=== PATIENT | male | born 1960 | race Caucasian/White ===

== ENCOUNTER → 2016-08-10 | Outpatient (CLI) | payer OTHER ==
[~2016-08-10] VITALS: Ht 182.9 cm; Wt 138.3 kg
[~2016-08-10] MED LIST: ASP81TEC PO; CATHETER FLUSH 10 ML SYR IV PRN; CIPR-225 PO; CIPR500T78 PO; CITA20TA4 PO; CITALOPRAM PO; CLOP75TA PO; CLOP75TA28 PO; FISH OIL 1,2001 EAC1 PO; GEMF600T3 PO; HYDR-1231 PO; LEVO125T6 PO; LEVOTHYROXINE PO; LOSA50TA6 PO; LSRT50T PO; METO25TA PO; METR500T21 PO; MULT1CAP27 PO; NAPR-243 PO; OMEG-9 PO; OMEP40CA36 PO; ONDA4TAB11 PO; OXYC-12 PO; PHEN37.555 PO; REGADENOSON 0.4 MG/5 ML SYR (LEXISCAN) IV ONE; SIMV40TA4 PO; SIMV80TA3; SIMV80TA3 PO; TRM50T PO; ZLP10T PO; ZOLP10TA5 PO
[2016-08-10 09:11] VITALS: BP 134/93
--- NOTE | 2016-08-10 12:40 | STRESS TEST ---
PROCEDURE PHYSICIAN: IRVING TAO RESTING AND POST REGADENOSON TECHNETIUM 99M TETROFOSMIN SPECT CT IMAGING DATE OF PROCEDURE: 08/10/2016 ORDERING PHYSICIAN: Mary Loomis APRN PRIMARY PHYSICIAN: Dr. Diane. OTHER PHYSICIAN: Dr. Tao CLINICAL DIAGNOSIS: Coronary artery disease, hyperlipidemia, hypertension. Baseline images were carried out after injection of 10.73 mCi of technetium 99m tetrofosmin. This was followed by 0.4 mg of regadenoson and 31.6 mCi technetium 99m tetrofosmin for stress imaging. The electrocardiogram showed sinus rhythm at baseline and did not change significantly with regadenoson infusion. Review of images at rest and following stress, does not indicate any distinct perfusion defects consistent with significant myocardial ischemia or infarction. Some degree of diaphragmatic attenuation is seen. Gated images show normal global left ventricular systolic function with normal regional wall motion, including the diaphragmatic wall of the left ventricle. Left ventricular ejection fraction is calculated to be 59%. Left ventricular end-diastolic volume is 96 mL. TID is absent (0.94). CONCLUSION: 1. No evidence of significant myocardial ischemia or infarction on this study. 2. Normal regional wall motion. 3. Normal global left ventricular systolic function with a calculated ejection fraction of 59%. Job ID: [id number] Dictated Date: 08/10/2016 11:30:00 Launch Steward Date: 08/10/2016 12:35:22 / re
== END ==
LOC: CARD 07:25
PROVIDERS: ATTEND Nurse Practitioner Family
DX: I25.10 Atherosclerotic heart disease of native coronary artery without angina pectoris (principal); I65.23 Occlusion and stenosis of bilateral carotid arteries; E78.4 Other hyperlipidemia; I10 Essential (primary) hypertension; I07.1 Rheumatic tricuspid insufficiency; I34.0 Nonrheumatic mitral (valve) insufficiency
CPT/HCPCS: 78452; 93017

== ENCOUNTER → 2016-08-11 | Outpatient (CLI) | payer OTHER ==
[~2016-08-11] MED LIST changes: -CATHETER FLUSH 10 ML SYR IV PRN; -REGADENOSON 0.4 MG/5 ML SYR (LEXISCAN) IV ONE
--- NOTE | 2016-08-23 09:44 | ECHOCARDIOGRAPHY REPORT ---
PROCEDURE PHYSICIAN: IRVING TAO DATE OF PROCEDURE: 08/11/2016 TWO DIMENSIONAL ECHOCARDIOGRAM REPORT PRIMARY PHYSICIAN: Dr. Diane OTHER PHYSICIAN: Dr. Tao REFERRING PHYSICIAN: ORDERING PHYSICIAN: Mary Loomis APRN INDICATION FOR THE PROCEDURE: 1. Coronary artery disease. 2. Hypertension. 3. Hyperlipidemia. MEASUREMENTS DERIVED VALUES LV DIAMETER (LAX) NORMALS NORMALS Diastolic (3.6-5.2) Eject. Fract. (60%+/-6%) Systolic (2.3-3.9) Diastolic Vol. % Shortening (0.22-0.42) Systolic Vol. Aortic Root 3.1 IVS THICKNESS Diastolic (0.6-1.1) LVPW THICKNESS Diastolic (0.6-1.1) LA DIAMETER Systolic 2.9 (2.1-3.7) DESCRIPTION: This is a technically difficult study. Global left ventricular systolic function appears well preserved. Left ventricular ejection fraction is approximately 60%. Aortic, mitral and tricuspid valve leaflets, to the extent visualized, seem to have good leaflet excursion. Due to and the technically difficult nature of this study, accurate chamber sizes measurements are not available. Doppler imaging indicates trivial, mitral and tricuspid regurgitation. There is no Doppler evidence of significant valvular stenosis. Inferior vena cava is not adequately visualized. Pulmonary artery systolic pressure is estimated to be approximately 35 mmHg. Good subcostal views are not available. Inferior vena cava is not seen. CONCLUSIONS: 1. Technically difficult study. 2. Well preserved global left ventricular systolic function with an ejection fraction of approximately 60%. 3. Trivial, mitral and tricuspid regurgitation. 4. No evidence of significant valvular stenosis. 5. Pulmonary artery systolic pressure is estimated to be approximately 35 mmHg. Job ID: [id number] Dictated Date: 08/22/2016 14:51:00 Obiee Architect Date: 08/23/2016 09:36:23 / prince
== END ==
LOC: CARD 11:20
PROVIDERS: ATTEND Nurse Practitioner Family
DX: I25.10 Atherosclerotic heart disease of native coronary artery without angina pectoris (principal); I65.23 Occlusion and stenosis of bilateral carotid arteries; E78.4 Other hyperlipidemia; I10 Essential (primary) hypertension; I07.1 Rheumatic tricuspid insufficiency; I34.0 Nonrheumatic mitral (valve) insufficiency
CPT/HCPCS: 93306

== ENCOUNTER 2020-02-21 20:58 | Inpatient (IN) | payer BC, OTHER ==
[~2020-02-21] VITALS: Ht 180.3 cm; Wt 140.3 kg
[~2020-02-21 20:58] MED LIST changes: +METR-145 PO; -METR500T21 PO
[2020-02-21] MEDS ORDERED: ASPIRIN 81 MG CHEW (CHILDREN'S ASA) PO ONE (21:30)
[2020-02-21] MEDS: NITROGLYCERIN 0.4 MG SL TABS BTL 25'S SL PRN ×3 (21:39→21:50)
--- NOTE | 2020-02-21 21:39 | ED Chest Pain ---
General Chief Complaint: Chest Pain Stated Complaint: SOA/ABD PAIN/CHEST PAIN Source: patient Exam Limitations: no limitations History of Present Illness Date Seen by Provider: Feb 21, 2020 Time Seen by Provider: 21:37 Initial Comments Epigastric and lower central chest pain for about 1 hour that began while at rest. Pain has been waxing and waning since then, it is for currently but was much more than this initially. He did have shortness of breath with it. He has a history of a stent to the RCA he states, this was [place] [address] Tao. He is supposed to be on blood pressure cholesterol medications and Plavix but he states that he's been without them for "a long time". Does not have a primary care provider and does not follow regularly with Dr. Tao. Timing/Duration: constant Severity/Quality: moderate Location: central Radiation: no radiation ASA po FLOOR SANDING MACHINE OPERATOR: No NTG SL FLOOR SANDING MACHINE OPERATOR: No Associated Symptoms: shortness of breath Allergies and Home Medications Allergies Coded Allergies: codeine (Unverified Allergy, Mild, 06/09/09) atorvastatin calcium (Verified Adverse Reaction, Unknown, muscle aches, 07/03/14) Home Medications Aspirin 81 Mg Tabec, 81 MG PO DAILY, (Reported) Ciprofloxacin HCl 500 Mg Tablet, 500 MG PO BID Prescribed by: CRYS RICKS on 02/01/15 0240 Clopidogrel Bisulfate 75 Mg Tablet, 75 MG PO DAILY, (Reported) Gemfibrozil 600 Mg Tablet, 600 MG PO BID, (Reported) Levothyroxine Sodium 125 Mcg Tablet, 125 MCG PO DAILY, (Reported) Losartan Potassium 50 Mg Tablet, 50 MG PO DAILY, (Reported) Metoprolol Succinate 25 Mg Tab.sr.24h, 12.5 MG PO DAILY, (Reported) TAKES 1/2 (25MG) TABLET Simvastatin 80 Mg Tablet, 40 MG PO HS, (Reported) LAST FILLED #30 4-5-15 TAKES 1/2 (80MG) TABLET Patient Home Medication List Home Medication List Reviewed: Yes Review of Systems Review of Systems Constitutional: see HPI EENTM: No Symptoms Reported Respiratory: See HPI Cardiovascular: See HPI, Chest Pain Gastrointestinal: See HPI Genitourinary: No Symptoms Reported Musculoskeletal: no symptoms reported Skin: no symptoms reported Psychiatric/Neurological: No Symptoms Reported Endocrine: No Symptoms Reported Hematologic/Lymphatic: No Symptoms Reported Past Lycwqnz-Xapvtm-Qhipfz Hx Patient Social History Alcohol Use: Denies Use Recreational Drug Use: No Smoking Status: Former Smoker 2nd Hand Smoke Exposure: No Recent Foreign Travel: No Contact w/Someone Who Travel: No Recent Hopitalizations: No Immunizations Up To Date Tetanus Booster (TDap): Less than 5yrs PED Vaccines UTD: No Seasonal Allergies Seasonal Allergies: No Past Medical History Surgeries: Yes (lap choley 2014; RT THUMB REMOVED LARGE CELL TUMOR, T&A, stent) Abdominal, Adenoidectomy, Coronary Stent, Gallbladder, Tonsillectomy Respiratory: No Cardiac: Yes (CAD, STENT & DC in 2010) Coronary Artery Disease, Heart Attack, High Cholesterol, Hypertension Neurological: No Reproductive Disorders: No Genitourinary: No Gastrointestinal: Yes (HX OF PANCREATITIS, diverticulitis x2 admits) Diverticulosis, Pancreatitis Musculoskeletal: No Endocrine: Yes Hypothyroidsim HEENT: No Loss of Vision: Denies Hearing Impairment: Denies Cancer: No Psychosocial: No Integumentary: No Blood Disorders: No Family Medical History Cataracts 19 MOTHER, Onset:Unknown Diabetes mellitus 19 MOTHER, Onset:Unknown FH: cancer 19 FATHER, Onset:Unknown Hypertension 19 MOTHER, Onset:Unknown Myocardial infarction 19 MOTHER, Onset:Unknown Thyroid disease 19 MOTHER, Onset:Unknown Physical Exam Vital Signs Vital Signs - First Documented Capillary Refill : Less Than 3 Seconds Height, Weight, BMI Height: 6'0.00" Weight: 305lbs. 0.0oz. 138.857453ma; 41.4 BMI Method:Stated General Appearance: No Apparent Distress, WD/WN, Obese HEENT: PERRL/EOMI, TMs Normal Respiratory: No Accessory Muscle Use, No Respiratory Distress Cardiovascular: Regular Rate, Rhythm, Normal Peripheral Pulses Gastrointestinal: Normal Bowel Sounds, Non Tender, Soft Neurologic/Psychiatric: Alert, Oriented x3 Skin: Normal Color, Warm/Dry Progress/Results/Core Measures Results/Orders Lab Results Laboratory Tests Test 02/21/20 21:32 Range/Units White Blood Count 10.6 4.3-11.0 10^3/uL Red Blood Count 5.12 4.30-5.52 10^6/uL Hemoglobin 14.9 13.3-17.7 g/dL Hematocrit 44 40-54 % Mean Corpuscular Volume 87 80-99 fL Mean Corpuscular Hemoglobin 29 25-34 pg Mean Corpuscular Hemoglobin Concent 34 32-36 g/dL Red Cell Distribution Width 13.4 10.0-14.5 % Platelet Count 265 130-400 10^3/uL Mean Platelet Volume 10.2 9.0-12.2 fL Immature Granulocyte % (Auto) 1 % Neutrophils (%) (Auto) 66 42-75 % Lymphocytes (%) (Auto) 23 12-44 % Monocytes (%) (Auto) 8 0-12 % Eosinophils (%) (Auto) 3 0-10 % Basophils (%) (Auto) 1 0-10 % Neutrophils # (Auto) 7.0 1.8-7.8 10^3/uL Lymphocytes # (Auto) 2.4 1.0-4.0 10^3/uL Monocytes # (Auto) 0.8 0.0-1.0 10^3/uL Eosinophils # (Auto) 0.3 0.0-0.3 10^3/uL Basophils # (Auto) 0.1 0.0-0.1 10^3/uL Immature Granulocyte # (Auto) 0.1 0.0-0.1 10^3/uL Prothrombin Time 13.3 12.2-14.7 SEC INR Comment 1.0 0.8-1.4 Activated Partial Thromboplast Time 34 24-35 SEC Sodium Level 137 135-145 MMOL/L Potassium Level 3.8 3.6-5.0 MMOL/L Chloride Level 102 98-107 MMOL/L Carbon Dioxide Level 21 21-32 MMOL/L Anion Gap 14 5-14 MMOL/L Blood Urea Nitrogen 10 7-18 MG/DL Creatinine 0.98 0.60-1.30 MG/DL Estimat Glomerular Filtration Rate > 60 BUN/Creatinine Ratio 10 Glucose Level 141 H 70-105 MG/DL Calcium Level 8.8 8.5-10.1 MG/DL Corrected Calcium 8.6 8.5-10.1 MG/DL Magnesium Level 1.7 1.6-2.4 MG/DL Total Bilirubin 0.5 0.1-1.0 MG/DL Aspartate Amino Transf (AST/SGOT) 41 H 5-34 U/L Alanine Aminotransferase (ALT/SGPT) 48 0-55 U/L Alkaline Phosphatase 72 40-136 U/L Myoglobin 309.6 H 10.0-92.0 NG/ML Troponin I < 0.028 <0.028 NG/ML B-Type Natriuretic Peptide 12.2 <100.0 PG/ML Total Protein 7.6 6.4-8.2 GM/DL Albumin 4.2 3.2-4.5 GM/DL Lipase 18 8-78 U/L Coronavirus 2019 (TOÑA) Negative Negative My Orders Orders - SINGH BECKMAN APRN Cbc With Automated Diff (02/21/20:) Magnesium (02/21/20:) Chest 1 View, Ap/Pa Only (02/21/20) Ekg Tracing (02/21/20) Comprehensive Metabolic Panel (02/21/20) Myoglobin Serum (02/21/20) Protime With Inr (02/21/20) Partial Thromboplastin Time (02/21/20) O2 (02/21/20) Monitor-Rhythm Ecg Trace Only (02/21/20) Lipid Panel (02/22/20 06:00) Ed Iv/Invasive Line Start (02/21/20:) Lipase (02/21/20:) BNP (02/21/20:) Nitroglycerin 0.4 Mg Btl 25's (Nitrostat (02/21/20:30) Aspirin Chewable Tablet (Baby Aspirin Ch (02/21/20 21:30) Covid 19 Inhouse Test (02/21/20:27) Fentanyl Injection (Sublimaze Injection (02/21/20 22:00) Antacid Suspension (Mylanta Suspension (02/21/20 22:00) Lidocaine 2% Viscous 15 Ml (Xylocaine Vi (02/21/20 22:00) Troponin I (02/21/20 21:32) Ekg Tracing (02/21/20 22:08) Coronavirus Sars-Cov-2 So 2019 (02/21/20 22:18) Medications Given in ED Current Medications Medications Dose Ordered Sig/Patrick Route Start Time Stop Time Status Last Admin Dose Admin Al Hydrox/Mg Hydrox/Simethicone 30 ml ONCE ONCE PO 02/21/20 22:00 02/21/20 22:01 DC 02/21/20 21:59 30 ML Aspirin 324 mg ONCE ONCE PO 02/21/20 21:30 02/21/20 21:31 DC 02/21/20 21:38 324 MG Fentanyl Citrate 50 mcg ONCE ONCE IVP 02/21/20 22:00 02/21/20 22:01 DC 02/21/20 21:59 50 MCG Lidocaine HCl 15 ml ONCE ONCE PO 02/21/20 22:00 02/21/20 22:01 DC 02/21/20 21:59 15 ML Nitroglycerin 0.4 mg UD PRN SL 02/21/20 21:30 02/21/20 21:50 DC 02/21/20 21:50 0.4 MG Vital Signs/I&O 02/21/20 02/21/20 21:17 21:17 Temp 35.9 Pulse 64 Resp 20 B/P (MAP) 140/89 (106) Pulse Ox 95 O2 Delivery Room Air Room Air Departure Communication (Admissions) 2151-chest pain was taken from 4 out of 10 down to 2 out of 10 after the first sublingual nitroglycerin. The second sublingual nitroglycerin did not help. GI cocktail and 50 of fentanyl ordered. 2229-he is not having any chest pain at this time. EKG shows minimal questionable ST elevation in the inferior leads. Spoke with Dr. Tao, given absence of chest pain not going urgently to catheter lab but does warrant admission in the hospital with serial cardiac enzymes. Impression Primary Impression: Chest pain Qualified Codes: R07.9 - Chest pain, unspecified Disposition: ADMITTED INPATIENT Condition: Stable Admissions Decision to Admit Reason: Admit from ER (General) Departure-Patient Inst. Referrals: LÁZARO PERLA MD (PCP/Family) Primary Care Physician SIN[facility] BECKMAN DESCRIPTIVE CATALOG LIBRARIAN Feb 21, 2020 21:39
[2020-02-21 21:44] LABS: BASOPHILS # (AUTO) 0.1 10^3/uL (0.0-0.1); BASOPHILS % (AUTO) 1 % (0-10); EOSINOPHILS # (AUTO) 0.3 10^3/uL (0.0-0.3); EOSINOPHILS % (AUTO) 3 % (0-10); HEMATOCRIT 44 % (40-54); HEMOGLOBIN 14.9 g/dL (13.3-17.7); LYMPHOCYTES # (AUTO) 2.4 10^3/uL (1.0-4.0); LYMPHOCYTES % (AUTO) 23 % (12-44); MEAN CORPUSCULAR HEMOGLOBIN 29 pg (25-34); MEAN CORPUSCULAR HGB CONC 34 g/dL (32-36); MEAN CORPUSCULAR VOLUME 87 fL (80-99); MEAN PLATELET VOLUME 10.2 fL (9.0-12.2); MONOCYTES # (AUTO) 0.8 10^3/uL (0.0-1.0); MONOCYTES % (AUTO) 8 % (0-12); NEUTROPHILS % (AUTO) 66 % (42-75); PLATELET COUNT 265 10^3/uL (130-400); WHITE BLOOD COUNT 10.6 10^3/uL (4.3-11.0)
[2020-02-21 21:59] LABS: ALBUMIN 4.2 GM/DL (3.2-4.5); CHLORIDE 102 MMOL/L (98-107); POTASSIUM 3.8 MMOL/L (3.6-5.0); SODIUM 137 MMOL/L (135-145)
[2020-02-21] MEDS ORDERED: fentaNYL INJECTION 100 MCG/2 ML AMP IVP ONE (22:00)
[2020-02-21] MEDS ORDERED: LIDOCAINE 2% VISCOUS 15 ML UDC PO ONE (22:00)
[2020-02-21] MEDS ORDERED: ANTACID SUSP 30 ML UDC (MYLANTA) PO ONE (22:00)
[2020-02-21 22:01] LABS: CALCIUM 8.8 MG/DL (8.5-10.1)
[2020-02-21 22:02] LABS: GLUCOSE 141 MG/DL (70-105); TOTAL PROTEIN 7.6 GM/DL (6.4-8.2)
[2020-02-21 22:03] LABS: CARBON DIOXIDE 21 MMOL/L (21-32)
[2020-02-21 22:04] LABS: BILIRUBIN,TOTAL 0.5 MG/DL (0.1-1.0)
[2020-02-21 22:05] LABS: ALKALINE PHOSPHATASE 72 U/L (40-136); CREATININE SERUM 0.98 MG/DL (0.60-1.30); GFR ESTIMATED > 60
[2020-02-21 22:07] LABS: BUN/CREATININE RATIO 10
[2020-02-21 22:08] LABS: ALANINE AMINOTRANSFERASE 48 U/L (0-55); MAGNESIUM 1.7 MG/DL (1.6-2.4); PROTHROMBIN TIME PATIENT 13.3 SEC (12.2-14.7)
[2020-02-21 22:09] LABS: LIPASE 18 U/L (8-78)
[2020-02-21] MEDS ORDERED: ENOXAPARIN 60 MG/0.6 ML (LOVENOX) SYR SC ONE (22:45)
[2020-02-21] MEDS ORDERED: CLOPIDOGREL 300 MG (PLAVIX) TABLET PO ONE (22:45)
[2020-02-21 22:56] VITALS: BP 119/68
[2020-02-21] MEDS: LACTATED RINGERS 1,000 ML IV SCH (23:42)
[2020-02-21] MEDS ORDERED: morphine INJ 4 MG/ML 1 ML (VIAL/SYRINGE) IV PRN (23:45)
[2020-02-21] MEDS ORDERED: ONDANSETRON 4 MG/2 ML (SDV) Z0FRAN IVP PRN (23:45)
[2020-02-22] MEDS: NITROGLYCERIN 0.4 MG SL TABS BTL 25'S SL PRN ×2 (02:22→02:32)
--- NOTE | 2020-02-22 03:28 | NUR ---
TIMELINE NOTE BELOW: 0220- PATIENT C/O CHEST PRESSURE 3/10 AND EXTREME NAUSEA. PATIENT ALSO DIAPHORETIC. CURRENT VITALS: HR 61 BP 128/97 SA02 97% ON ROOM AIR, AND RESPIRATIONS 9. 0222- THIS RN GAVE 1 SUBLINGUAL NITROGLYCERIN TAB AND 4MG ZOFRAN IV (SEE EMAR). THIS PROVIDED NO RELIEF TO PATIENT. THIS RN ATTEMPTING TO OBTAIN STAT EKG, PATIENT EXTREMELY DIAPHORETIC AND STICKERS NOT STICKING AT THIS TIME. 0230- CURRENT VITALS HR 57 BP 112/73 SA02 94% ON ROOM AIR, AND RESPIRATIONS 11. 0232- 2ND NITROGLYCERIN SUBLINGUAL TAB GIVEN AT THIS TIME (SEE EMAR). NITROGLYCERIN PROVIDED NO RELIEF TO PATIENT. 0241- STAT EKG OBTAINED, READ "SINUS RHYTHM". 0248- CURRENT VITALS: HR 49 BP 81/55 SA02 93% ROOM AIR, AND RESPIRATIONS OF 8. PT STILL C/O OF CHEST PRESSURE 3/10 WITH EXTREME NAUSEA AND DIAPHORESIS DESPITE ABOVE INTERVENTIONS. THIS RN PAGED DR. NUNEZ AT THIS TIME AND NOTIFIED OF CURRENT VITALS AND PATIENT COMPLAINTS. DR. NUNEZ ORDERED STAT HEART CATH. FUR SORTER, WILSON, NOTIFIED AT THIS TIME. READING COACH TEAM NOTIFIED AT THIS TIME. CONSENT OBTAINED. 0300- PATIENT RESTING COMFORTABLY IN BED, CURRENT VITALS: HR 56 BP 123/79 SA02 95% ROOM AIR, AND RESPIRATIONS 13. 0341- READING COACH TEAM AT BEDSIDE TO ESCORT PATIENT TO HEART CATH.
[2020-02-22] MEDS ORDERED: MIDAZOLAM 5 MG/5 ML (VERSED) VIAL ONE (03:30)
[2020-02-22] MEDS ORDERED: HEParin 1000 UNIT/ML (10ML VIAL) FOR BOLUS ONE (03:30)
[2020-02-22] MEDS ORDERED: NS IV 1000 ML 0 ML ONE (03:30)
[2020-02-22] MEDS ORDERED: NITRO DRIP 25000 MCG/D5W 0 ML IV ONE (03:30)
[2020-02-22] MEDS ORDERED: fentaNYL INJECTION 100 MCG/2 ML AMP ONE ×2 (03:30→07:23)
[2020-02-22] MEDS ORDERED: LIDOCAINE 1% INJ 20 ML 20 ML VIAL ONE ×2 (03:30→04:01)
[2020-02-22] MEDS ORDERED: HEParin (CATH LAB) 2,000 ML IV ONE (03:31)
--- NOTE | 2020-02-22 03:33 | Consultation-Cardiology ---
HPI-Cardiology Cardiology Consultation: Date of Consultation 02/22/20 Time Seen by a Provider: 05:10 Date of Admission Attending Physician Phuong Hammonds MD Admitting Physician Consulting Physician IRVING NUNEZ MD, MA, FACP, FACC, FSCAI, CCDS HPI: Chief Complaint: CC: Chest discomfort HPI 59 yo man with known CAD who has been noncompliant with therapy and f/u presented with 1-2 hours chest discomfort, mild to mod, mid and parasternal, w/o radiation, w/o associated symptoms, relieved with s/l NTG in ER, not previously experienced. His chest pain had subsided. ECG was not significantly different from the past. Was admitted to the hospital. Had recurrent chest discomfort, now associated with diaphoresis and nausea and some shortness of breath, not relieved with s/l NTG. Urgent cath occlusion of distal RCA to which successful intervention was carried out Review of Systems-Cardiology Review of Systems Constitutional: malaise; No weight loss, No weight gain Eyes: No vision change Ears/Nose/Throat: No ear discharge, No nasal drainage, No recent hearing loss Respiratory: As described under HPI Cardiovascular: As described under HPI Gastrointestinal: As described under HPI Genitourinary: No dysuria, No hematuria Musculoskeletal: back pain (chronic) Skin: No rash, No ulcerations Psychiatric/Neurological: No seizure, No focal weakness, No syncope FLY-Yegthp-Ybaxsw Hx Patient Social History Alcohol Use: Denies Use Recreational Drug Use: No Smoking Status: Former Smoker Former smoker/When Quit: Dec 22, 2009 2nd Hand Smoke Exposure: No Recent Foreign Travel: No Recent Infectious Disease Expo: No Immunizations Up To Date Tetanus Booster (TDap): Less than 5yrs Date of Influenza Vaccine: Feb 05, 2020 Past Medical History PMH As described under Assessment. Family Medical History Family History: Cataracts 19 MOTHER, Onset:Unknown Diabetes mellitus 19 MOTHER, Onset:Unknown FH: cancer 19 FATHER, Onset:Unknown Hypertension 19 MOTHER, Onset:Unknown Myocardial infarction 19 MOTHER, Onset:Unknown Thyroid disease 19 MOTHER, Onset:Unknown Allergies and Home Medications Allergies Coded Allergies: Penicillins (Verified Allergy, Severe, 02/21/20) patient states "my throat started feeling funny and the doctor said stop taking it". codeine (Unverified Allergy, Severe, 02/21/20) Pt stated he hasn't had it since he was little but his mom said he "almost twice because of it". atorvastatin calcium (Verified Adverse Reaction, Unknown, muscle aches, 07/03/14) lisinopril (Verified Adverse Reaction, Unknown, 02/21/20) Patient states reaction is coughing. Home Medications Aspirin 81 Mg Tabec, 81 MG PO DAILY, (Reported) Ciprofloxacin HCl 500 Mg Tablet, 500 MG PO BID Prescribed by: CRYS RICKS on 02/01/15 0240 Clopidogrel Bisulfate 75 Mg Tablet, 75 MG PO DAILY, (Reported) Gemfibrozil 600 Mg Tablet, 600 MG PO BID, (Reported) Levothyroxine Sodium 125 Mcg Tablet, 125 MCG PO DAILY, (Reported) Losartan Potassium 50 Mg Tablet, 50 MG PO DAILY, (Reported) Metoprolol Succinate 25 Mg Tab.sr.24h, 12.5 MG PO DAILY, (Reported) TAKES 1/2 (25MG) TABLET Simvastatin 80 Mg Tablet, 40 MG PO HS, (Reported) LAST FILLED #30 4-5-15 TAKES 1/2 (80MG) TABLET Patient Home Medication List Home Medication List Reviewed: Yes Physical Exam-Cardiology Physical Exam Vital Signs/I&O 02/21/20 02/21/20 02/21/20 02/21/20 21:17 21:17 22:56 23:15 Temp 35.9 36.8 Pulse 64 73 80 Resp 20 16 B/P (MAP) 140/89 (106) 119/68 173/97 Pulse Ox 95 95 97 O2 Delivery Room Air Room Air Room Air Room Air 02/21/20 02/21/20 02/21/20 02/21/20 23:20 23:22 23:27 23:30 Temp 36.4 Pulse 75 70 80 B/P (MAP) 173/97 152/98 Pulse Ox 97 97 96 O2 Delivery Room Air Room Air Room Air 02/21/20 02/22/20 02/22/20 02/22/20 23:45 00:00 00:00 00:30 Pulse 97 87 78 B/P (MAP) 147/94 140/92 126/87 Pulse Ox 96 97 96 97 O2 Delivery Room Air Room Air Room Air Room Air 02/22/20 02/22/20 02/22/20 02/22/20 01:00 01:00 02:00 03:00 Pulse 77 67 62 B/P (MAP) 120/79 141/88 Pulse Ox 96 95 95 O2 Delivery Room Air Room Air Room Air 02/22/20 03:00 Pulse 56 B/P (MAP) 123/79 Pulse Ox 95 O2 Delivery Room Air Capillary Refill : Less Than 3 Seconds Constitutional: AAO x 3, well-developed, well-nourished HEENT: EOMI, hearing is well preserved; No xanthelasmas are seen Neck: carotid pulses are 2 + bilaterally, with good upstrokes Respiratory: No accessory muscle use; other (good bilat air entry) Cardiovascular: regular rate-rhythm, S1 and S2, systolic murmur (soft VOLODYMYR at card base) Gastrointestinal: No tender; soft; No guarding, No rebound; audible bowel sounds Extremities: No clubbing, No cyanosis, No significant edema Neurologic/Psychiatric: oriented x 3, other (moves all limbs equally) Skin: No rash on exposed areas, No ulcerations on exposed areas Data Review Labs Laboratory Tests 02/21/20 21:32: White Blood Count 10.6, Red Blood Count 5.12, Hemoglobin 14.9, Hematocrit 44, Mean Corpuscular Volume 87, Mean Corpuscular Hemoglobin 29, Mean Corpuscular Hemoglobin Concent 34, Red Cell Distribution Width 13.4, Platelet Count 265, Mean Platelet Volume 10.2, Immature Granulocyte % (Auto) 1, Neutrophils (%) (Auto) 66, Lymphocytes (%) (Auto) 23, Monocytes (%) (Auto) 8, Eosinophils (%) (Auto) 3, Basophils (%) (Auto) 1, Neutrophils # (Auto) 7.0, Lymphocytes # (Auto) 2.4, Monocytes # (Auto) 0.8, Eosinophils # (Auto) 0.3, Basophils # (Auto) 0.1, Immature Granulocyte # (Auto) 0.1, Prothrombin Time 13.3, INR Comment 1.0, Activated Partial Thromboplast Time 34, Sodium Level 137, Potassium Level 3.8, Chloride Level 102, Carbon Dioxide Level 21, Anion Gap 14, Blood Urea Nitrogen 10, Creatinine 0.98, Estimat Glomerular Filtration Rate > 60, BUN/Creatinine Ratio 10, Glucose Level 141H, Calcium Level 8.8, Corrected Calcium 8.6, Magnesium Level 1.7, Total Bilirubin 0.5, Aspartate Amino Transf (AST/SGOT) 41H, Alanine Aminotransferase (ALT/SGPT) 48, Alkaline Phosphatase 72, Myoglobin 309.6H, Troponin I < 0.028, B-Type Natriuretic Peptide 12.2, Total Protein 7.6, Albumin 4.2, Lipase 18, Coronavirus 2019 (TOÑA) Negative Laboratory Tests 02/21/20 21:32 A/P-Cardiology Assessment/Admission Diagnosis Acute coronary syndrome treated with intervention to distal RCA on 02/22/20 (see below) Coronary artery disease with a history of drug-eluting stenting of the proximal and mid right coronary artery with Promus 2.75 x 28-mm stent on 11/03/2009, after the patient had presented with acute non-ST elevation myocardial infarction. Card cath on 02/22/20: LMCA ok, LADD1 60% mid, RI 60% prox, LCXOM1 60% prox, patent prox RCA stent, 50% mid RCA, occlusion of distal RCA past a small PDA to which successful intervention was carried out with Santi 2x18 stent, LVEDP 24 mmHg, hypokinesis to akinesis of posterobasal segment of LV, LVEF 40- 45% Echocardiogram of August 2016 showed LVEF 60%. Trivial MR and TR. No evidence of significant valvular stenosis. PASP estimated to be approx 35mmHg Maturity onset diabetes mellitus, borderline Hyperlipidemia Gastroesophageal reflux History of chronic anxiety and depression, currently controlled Obesity with a body mass index of approx 40.6 Quit smoking in 2009 Discussion and Recomendations * I have discussed his coronary findings and interventions with him * DAPT initiated * He reports intolerance to statins and does not wish to take any statin * BB and JESSICA-inhib as tolerated by bp * Advised compliance with meds * Risk factor mod discussed Clinical Quality Measures AMI/AHF: ASA po Prior to arrival: No DVT/VTE Risk/Contraindication: Risk Factor Score Per Nursin RFS Level Per Nursing on Admit: 3=High IRVING NUNEZ MD FACP FAC CCDS Feb 22, 2020 03:33
[2020-02-22] MEDS ORDERED: EPTIFIBATIDE BOLUS 10 ML IV ONE (04:11)
[2020-02-22] MEDS ORDERED: EPTIFIBATIDE BOLUS 20 ML IV ONE (04:11)
[2020-02-22] MEDS ORDERED: EPTIFIBATIDE DRIP 100 ML IV ONE (04:11)
[2020-02-22] MEDS: LACTATED RINGERS 1,000 ML IV SCH (04:27)
[2020-02-22] MEDS ORDERED: LACTATED RINGERS 1,000 ML IV ONE (04:27)
[2020-02-22] MEDS ORDERED: CLOPIDOGREL 300 MG (PLAVIX) TABLET PO ONE (04:45)
[2020-02-22] MEDS ORDERED: ASPIRIN 81 MG CHEW (CHILDREN'S ASA) ONE (04:45)
--- NOTE | 2020-02-22 05:21 | Cardiac Procedure Note-CS/ASA ---
Pre-Procedure Note Pre-Op Procedure Note H&P Reviewed The H&P was reviewed, patient examined and no changes noted. Date H&P Reviewed: Feb 22, 2020 Time H&P Reviewed: 03:33 Conscious Sedation Pre-Proced Time 03:33 ASA Score 3 For ASA 3 and 4: Consider anesthesia and medical clearance. Also, for patients with a history of failed moderate sedation consider anesthesia. Airway Lungs Heart ASA score ASA 1: a normal healthy patient ASA 2: a patient with a mild systemic disease (mid diabetes, controlled hypertension, obesity ASA 3: a patient with a severe systemic disease that limits activity (angina, COPD, prior Myocardial infarction) ASA 4: a patient with an incapacitating disease that is a constant threat to life (CHF, renal failure) ASA 5: a moribund patient not expected to survive 24 hrs. (ruptured aneurysm) ASA 6: a declared brain- patient whose organs are being harvested. For emergent operations, add the letter E after the classification Mallampati Classification Grade 3 Sedation Plan Analgesia, Amnesia, Plan communicated to team members, Discussed options with patient/fam, Discussed risks with patient/fam The patient is an appropriate candidate to undergo the planned procedure, sedation, and anesthesia. The patient immediately re-assessed prior to indication. IRVING NUNEZ MD FACP FAC CCDS Feb 22, 2020 05:21
[2020-02-22] MEDS ORDERED: NS IV 1000 ML 1,000 ML IV SCH (05:24)
[2020-02-22] MEDS ORDERED: PATIENT MAY USE OWN MEDS, ALL PO SCH (05:30)
[2020-02-22 06:16] LABS: BASOPHILS % (AUTO) 0 % (0-10); EOSINOPHILS # (AUTO) 0.1 10^3/uL (0.0-0.3); EOSINOPHILS % (AUTO) 1 % (0-10); HEMATOCRIT 41 % (40-54); HEMOGLOBIN 13.9 g/dL (13.3-17.7); LYMPHOCYTES # (AUTO) 1.9 10^3/uL (1.0-4.0); LYMPHOCYTES % (AUTO) 16 % (12-44); MEAN CORPUSCULAR HEMOGLOBIN 30 pg (25-34); MEAN CORPUSCULAR HGB CONC 34 g/dL (32-36); MEAN CORPUSCULAR VOLUME 88 fL (80-99); MEAN PLATELET VOLUME 10.1 fL (9.0-12.2); MONOCYTES # (AUTO) 0.8 10^3/uL (0.0-1.0); MONOCYTES % (AUTO) 7 % (0-12); NEUTROPHILS # (AUTO) 8.6 10^3/uL (1.8-7.8); NEUTROPHILS % (AUTO) 75 % (42-75); PLATELET COUNT 236 10^3/uL (130-400); WHITE BLOOD COUNT 11.5 10^3/uL (4.3-11.0)
--- NOTE | 2020-02-22 06:26 | CARDIAC CATHETERIZATION ---
DATE OF SERVICE: 02/22/2020 CARDIAC CATHETERIZATION REPORT The patient is a 59-year-old man who presented to the emergency room with chest discomfort. Chest discomfort was relieved in the emergency room with sublingual nitroglycerin. He later had recurrent chest discomfort on the floor and urgent cardiac catheterization was recommended, and informed consent obtained. He has a prior history of coronary stenting (right coronary artery in 2009). He has been noncompliant with medications. DESCRIPTION OF PROCEDURE: He was brought to the cardiac catheterization laboratory. Right groin was prepared and draped in the usual sterile fashion. Lidocaine 1% was used for local anesthesia. Modified Seldinger technique was used to advance a 6-Palestinian sheath in right femoral artery. A 6-Palestinian JL4 catheter was used for left coronary angiography. A 6-Palestinian JR4 catheter was used for right coronary angiography. A 6-Palestinian pigtail catheter was used for left heart catheterization and left ventricular angiography after completion of the right coronary interventional procedure that is described below. Angiography of the right femoral artery was carried out through the sheath. The site of sheath insertion did not appear appropriate for device closure. The sheath was sutured in place and the patient was transferred to the floor for manual sheath removal. PERCUTANEOUS INTERVENTION OF THE RIGHT CORONARY: We used a 6-Palestinian JR4 guide catheter with side holes. We advanced a ChoICE floppy wire. The very distal part of the right coronary artery was occluded past a small posterior descending branch. We were able to cross the lesion and the tip of the wire was placed in the distal posterolateral system. We carried out balloon angioplasty with 1.5 x 20 mm balloon. This restored antegrade flow. Balloon was removed and we then stented the lesion with Jefferson 2.0 x 18 mm stent. This was deployed at 12 atmospheres. The balloon was then collapsed and pulled back to the proximal two-thirds of the stent and the stent was deployed at 18 atmospheres. This was done because the proximal part of the standard segment is of a slightly bigger size than the distal part of the standard segment. Subsequent angiography revealed no significant residual stenosis and flow throughout the vessel is normal. He tolerated this procedure well. HEMODYNAMICS: Left ventricular end-diastolic pressure following coronary angiography was 24 mmHg. There is no significant pressure gradient on pullback across the aortic valve. Ascending aortic pressure was 98/58 with a mean of 73 mmHg. CORONARY ANGIOGRAPHY: Left main coronary artery is free of significant disease. Left anterior descending artery has diffuse mild to moderate disease. The first diagonal branch of the left anterior descending has 60% mid vessel stenosis. A ramus intermedius artery has 60% proximal stenosis. The first obtuse marginal branch, left circumflex artery has a 60% stenosis. Right coronary artery had a patent stented segment in its proximal and mid portion. This is a Promus 2.75 x 28 mm stent that was placed on 11/03/2009. The mid right coronary artery has 50% stenosis. This was not intervened on. The distal right coronary artery was occluded following the origin of a small posterior descending branch of the right coronary. This segment was intervened on, and it come up following deployment of Santi 2.0 x 18 mm stent, there is no significant residual stenosis and normal antegrade flow has been restored. LEFT VENTRICULAR ANGIOGRAPHY: Left ventricular angiography was carried out in the right anterior oblique projection. There is posterobasal hypokinesis to akinesis. Left ventricular ejection fraction is 40% to 45%. HEMODYNAMICS: Left ventricular end-diastolic pressure following coronary angiography was 24 mmHg. There is no significant pressure gradient on pullback across the aortic valve. Ascending aortic pressure was 98/58 with a mean of 73 mmHg. CONCLUSIONS: 1. Moderate left coronary artery disease that includes 60% mid vessel stenosis of the first diagonal, 60% proximal stenosis of the ramus intermedius, and a 60% stenosis of the proximal first obtuse marginal. The right coronary artery has a patent stent in its proximal portion that is known to be Promus 2.75 x 28 mm stent that was placed in 2009. The distal right coronary artery was occluded past the origin of a small posterior descending branch. To this successful stenting was carried out with Santi 2.0 x 8 mm stent. 2. Posterior basal hypokinesis. 3. Ohvc-ko-ymykjlwn impairment of global left ventricular systolic function with ejection fraction of 40% to 45%. 4. Elevated left ventricular end-diastolic pressure. DISCUSSION AND RECOMMENDATIONS: We have advised compliance with medications. He had quit taking his antiplatelet medications. He is now on dual antiplatelet therapy with aspirin and clopidogrel. He reports intolerance to statins and does not wish to take it. Beta blockers will be given as tolerated by heart rate and blood pressure. He reports intolerance to JESSICA inhibitors. We are initiating therapy with low dose angiotensin receptor blockers and this will be continued as tolerated. Risk factor modification has been reviewed with him. Job ID: [id number] DocumentID: [id number] Dictated Date: 02/22/2020 05:38:35 Procurement Coordinator Date: 02/22/2020 06:25:24 Dictated By: IRVING NUNEZ MD, MA, FACP, FACC,
[2020-02-22] MEDS ORDERED: ATROPINE INJ 0.4 MG/ML SDV ONE (06:36)
[2020-02-22 06:37] LABS: BUN/CREATININE RATIO 13; CALCIUM 8.5 MG/DL (8.5-10.1); CARBON DIOXIDE 21 MMOL/L (21-32); CHLORIDE 102 MMOL/L (98-107); CHOLESTEROL 203 MG/DL (< 200); CREATININE SERUM 0.88 MG/DL (0.60-1.30); GFR ESTIMATED > 60; GLUCOSE 161 MG/DL (70-105); HDL CHOLESTEROL 25 MG/DL (40-60); MAGNESIUM 1.9 MG/DL (1.6-2.4); POTASSIUM 4.1 MMOL/L (3.6-5.0); SODIUM 133 MMOL/L (135-145); TRIGLYCERIDES 352 MG/DL (<150); VLDL CHOLESTEROL 70 MG/DL (5-40)
[2020-02-22] MEDS ORDERED: fentaNYL INJECTION 100 MCG/2 ML AMP IVP ONE (07:30)
--- NOTE | 2020-02-22 07:39 | Diagnostic Imaging Report ---
INDICATION: Chest pain. Comparison made with prior examination 08/10/2014 FINDINGS: There is cardiomegaly. Some left basilar atelectasis and/or pneumonitis. There is no pneumothorax. Mediastinum is unremarkable. IMPRESSION: Left basilar atelectasis and/or pneumonitis. Cardiomegaly. Dictated by: Dictated on workstation # [id number]
[2020-02-22] MEDS ORDERED: CLOPIDOGREL 75 MG (PLAVIX) TABLET PO SCH (09:00)
[2020-02-22] MEDS ORDERED: LOSARTAN 25 MG (COZAAR) TAB PO SCH (09:00)
[2020-02-22] MEDS ORDERED: meTOproloL SUCCINATE 50 MG (TOPROL XL) TAB PO SCH (09:00)
[2020-02-22] MEDS ORDERED: ASPIRIN 81 MG CHEW (CHILDREN'S ASA) PO SCH (09:00)
[2020-02-22] MEDS ORDERED: ENOXAPARIN 300 MG/3 ML (LOVENOX) MULTI-DOSE VIAL SQ SCH (09:00)
--- NOTE | 2020-02-22 11:19 | NUR ---
lab called at this time, reported at critical lab value for troponin of 3.414. this rn verbalized understanding and reported to markus colvin, RN
--- NOTE | 2020-02-22 13:52 | History & Physical-Hospitalist ---
History of Present Illness HPI/Chief Complaint Harrison Booth is a 59-year-old male with past medical history of hypertension, hyperlipidemia, type II diabetes mellitus, coronary artery disease, morbid obesity, former smoker, who presented with chest pain. He reports that the pain started in the center of his chest and did not radiate. He says it was associated with trouble breathing. Overnight, he says that the pain worsened and was associated with nausea and diaphoresis. He was taken to the catheter lab and he had a coronary artery stent placed. Upon my examination, he denies any ongoing chest pain. He has no complaints or concerns at this time. Source: patient Exam Limitations: no limitations Date Seen 02/22/20 Time Seen by a Provider: 10:15 Attending Physician Ruth Lechuga MD PCP Deleted Referring Physician Date of Admission Feb 21, 2020 at 22:52 Home Medications & Allergies Home Medications Reviewed patient Home Medication Reconciliation performed by pharmacy medication reconciliations precision agriculture technician and/or nursing. Patients Allergies have been reviewed. Allergies Allergies Coded Allergies Penicillins (Verified Allergy, Severe, 02/21/20) patient states "my throat started feeling funny and the doctor said stop taking it". codeine (Unverified Allergy, Severe, 02/21/20) Pt stated he hasn't had it since he was little but his mom said he "almost twice because of it". atorvastatin calcium (Verified Adverse Reaction, Unknown, muscle aches, 07/03/14) lisinopril (Verified Adverse Reaction, Unknown, 02/21/20) Patient states reaction is coughing. Past Iucpygq-Nsbegy-Fqhiam Hx Past Med/Social Hx: Reviewed Nursing Past Med/Soc Hx Patient Social History Alcohol Use: Denies Use Recreational Drug Use: No Smoking Status: Former Smoker 2nd Hand Smoke Exposure: No Recent Foreign Travel: No Contact w/other who traveled: No Recent Hopitalizations: No Recent Infectious Disease Expo: No Immunizations Up To Date Tetanus Booster (TDap): Less than 5yrs Pediatric: No Date of Influenza Vaccine: Feb 05, 2020 Seasonal Allergies Seasonal Allergies: No Past Medical History Surgeries: Abdominal, Adenoidectomy, Coronary Stent, Gallbladder, Tonsillectomy Cardiac: Coronary Artery Disease, Heart Attack, High Cholesterol, Hypertension Reproductive: No Gastrointestinal: Diverticulosis, Pancreatitis Endocrine: Hypothyroidsim Loss of Vision: Denies Hearing Impairment: Denies History of Blood Disorders: No Family History Cataracts 19 MOTHER, Onset:Unknown Diabetes mellitus 19 MOTHER, Onset:Unknown FH: cancer 19 FATHER, Onset:Unknown Hypertension 19 MOTHER, Onset:Unknown Myocardial infarction 19 MOTHER, Onset:Unknown Thyroid disease 19 MOTHER, Onset:Unknown Review of Systems Constitutional: diaphoresis EENTM: no symptoms reported Respiratory: short of breath Cardiovascular: chest pain Gastrointestinal: nausea Genitourinary: no symptoms reported Musculoskeletal: no symptoms reported Skin: no symptoms reported Psychiatric/Neurological: No Symptoms Reported Physical Exam Physical Exam Vital Signs Vital Signs - First Documented Capillary Refill : Less Than 3 Seconds Height, Weight, BMI Height: 6'0.00" Weight: 305lbs. 0.0oz. [id number]; 43.15 BMI Method:Stated General Appearance: No Apparent Distress, Obese HEENT: PERRL/EOMI, Pharynx Normal Neck: Normal Inspection, Supple Respiratory: Lungs Clear, Normal Breath Sounds, No Respiratory Distress Cardiovascular: Regular Rate, Rhythm, No Edema, No Murmur Gastrointestinal: Normal Bowel Sounds, Non Tender, Soft Extremity: Non Tender, Pedal Edema, Other (pressure dressing on the right groin) Neurologic/Psychiatric: Alert, Oriented x3, No Motor/Sensory Deficits, Normal Mood/Affect Skin: Normal Color, Warm/Dry Results Results/Procedures Labs Laboratory Tests 02/21/20 21:32 02/22/20 06:05 02/22/20 06:12 Patient resulted labs reviewed. Imaging: Reviewed Imaging Report Assessment/Plan Admission Diagnosis Unstable angina Admission Status: Inpatient Order (span 2 midnights) Reason for Inpatient Admission: UA requiring cardiology consultation and intervention Assessment and Plan Unstable angina CAD Initial troponin and EKG unremarkable Worsening symptoms overnight Left heart catheterization revealed right coronary artery occlusion Coronary artery stenting performed Aspirin and Plavix Intolerant to statins Metoprolol Intolerant to jannette inhibitors Losartan HTN HLD T2DM Hypothyroidism Medication non-compliance Recommend compliance Former smoker Morbid obesity BMI 43.2 Clinically significant, no acute management needs DVT Prophylaxis: Lovenox Diagnosis/Problems Diagnosis/Problems (1) Unstable angina Status: Acute (2) CAD (coronary artery disease) Status: Acute Qualifiers: Coronary Disease-Associated Artery/Lesion type: [place] artery [place] vs. transplanted heart: [place] heart Associated angina: with unstable angina Qualified Codes: I25.110 - Atherosclerotic heart disease of [place] coronary artery with unstable angina pectoris (3) Morbid obesity Status: Chronic (4) Former smoker Status: Chronic (5) HTN (hypertension) Status: Chronic Qualifiers: Hypertension type: essential hypertension Qualified Codes: I10 - Essential (primary) hypertension (6) HLD (hyperlipidemia) Status: Chronic (7) T2DM (type 2 diabetes mellitus) Status: Chronic Qualifiers: Diabetes mellitus prison insulin use: without prison use (8) Non compliance w medication regimen Status: Chronic Clinical Quality Measures AMI/AHF: ASA po Prior to arrival: No DVT/VTE Risk/Contraindication: Risk Factor Score Per Nursin RFS Level Per Nursing on Admit: 3=High RUTH LECHUGA MD Feb 22, 2020 13:52
[2020-02-22] MEDS ORDERED: ENOXAPARIN 40 MG/0.4 ML (LOVENOX) SYR SQ SCH ×2 (14:00)
[2020-02-22] MEDS ORDERED: CLOP75TA28 PO (14:08)
[2020-02-22] MEDS ORDERED: LOSA25TA41 PO (14:08)
[2020-02-22] MEDS ORDERED: METO50TA7 PO (14:08)
--- NOTE | 2020-02-22 14:15 | Discharge Summary ---
Discharge Summary Hospital Course Problems/Dx: (1) Unstable angina Status: Acute (2) CAD (coronary artery disease) Status: Acute Qualifiers: Qualified Codes: I25.110 - Atherosclerotic heart disease of [place] coronary artery with unstable angina pectoris (3) Morbid obesity Status: Chronic (4) Former smoker Status: Chronic (5) HTN (hypertension) Status: Chronic Qualifiers: Qualified Codes: I10 - Essential (primary) hypertension (6) HLD (hyperlipidemia) Status: Chronic (7) T2DM (type 2 diabetes mellitus) Status: Chronic Qualifiers: (8) Non compliance w medication regimen Status: Chronic Hospital Course Date of Admission: Feb 21, 2020 at 22:52 Admission Diagnosis : Unstable angina Family Physician/Provider: Russel Date of Discharge: 02/22/20 Discharge Diagnosis: Unstable angina Hospital Course: Harrison Booth is a 59-year-old male who presented with chest pain and was admitted with unstable angina. His symptoms worsened and he was taken for left heart catheterization. This revealed an occlusion of the right coronary artery. A coronary artery stent was placed. He was recommended to continue aspirin and Plavix. He was unable to be placed on a statin due to intolerance. He was unable to be placed on an JESSICA inhibitor due to intolerance. He was started on losartan. He was started on metoprolol. His prescriptions were sent to [facility] prior to him leaving AGAINST MEDICAL ADVICE. Labs and Pending Lab Test: Laboratory Tests 02/21/20 21:32: White Blood Count 10.6, Red Blood Count 5.12, Hemoglobin 14.9, Hematocrit 44, Mean Corpuscular Volume 87, Mean Corpuscular Hemoglobin 29, Mean Corpuscular Hemoglobin Concent 34, Red Cell Distribution Width 13.4, Platelet Count 265, Mean Platelet Volume 10.2, Immature Granulocyte % (Auto) 1, Neutrophils (%) (Auto) 66, Lymphocytes (%) (Auto) 23, Monocytes (%) (Auto) 8, Eosinophils (%) (Auto) 3, Basophils (%) (Auto) 1, Neutrophils # (Auto) 7.0, Lymphocytes # (Auto) 2.4, Monocytes # (Auto) 0.8, Eosinophils # (Auto) 0.3, Basophils # (Auto) 0.1, Immature Granulocyte # (Auto) 0.1, Prothrombin Time 13.3, INR Comment 1.0, Activated Partial Thromboplast Time 34, Sodium Level 137, Potassium Level 3.8, Chloride Level 102, Carbon Dioxide Level 21, Anion Gap 14, Blood Urea Nitrogen 10, Creatinine 0.98, Estimat Glomerular Filtration Rate > 60, BUN/Creatinine R atio 10, Glucose Level 141H, Calcium Level 8.8, Corrected Calcium 8.6, Magnesium Level 1.7, Total Bilirubin 0.5, Aspartate Amino Transf (AST/SGOT) 41H, Alanine Aminotransferase (ALT/SGPT) 48, Alkaline Phosphatase 72, Myoglobin 309.6H, Troponin I < 0.028, B-Type Natriuretic Peptide 12.2, Total Protein 7.6, Albumin 4.2, Lipase 18, Coronavirus 2019 ([place]ÑA) Negative 02/22/20 06:05: Activated Partial Thromboplast Time 48H, Sodium Level 133L, Potassium Level 4.1, Chloride Level 102, Carbon Dioxide Level 21, Anion Gap 10, Blood Urea Nitrogen 11, Creatinine 0.88, Estimat Glomerular Filtration Rate > 60, BUN/Creatinine Ratio 13, Glucose Level 161H, Calcium Level 8.5, Magnesium Level 1.9, Phosphorus Level 3.0, Triglycerides Level 352H, Cholesterol Level 203H, LDL Cholesterol Direct 136H, VLDL Cholesterol 70H, HDL Cholesterol 25L 02/22/20 06:12: White Blood Count 11.5H, Red Blood Count 4.69, Hemoglobin 13.9, Hematocrit 41, Mean Corpuscular Volume 88, Mean Corpuscular Hemoglobin 30, Mean Corpuscular Hemoglobin Concent 34, Red Cell Distribution Width 13.6, Platelet Count 236, Mean Platelet Volume 10.1, Immature Granulocyte % (Auto) 1, Neutrophils (%) (Auto) 75, Lymphocytes (%) (Auto) 16, Monocytes (%) (Auto) 7, Eosinophils (%) (Auto) 1, Basophils (%) (Auto) 0, Neutrophils # (Auto) 8.6H, Lymphocytes # (Auto) 1.9, Monocytes # (Auto) 0.8, Eosinophils # (Auto) 0.1, Basophils # (Auto) 0.0, Immature Granulocyte # (Auto) 0.1 02/22/20 10:10: Troponin I 3.414*H Home Meds Active Losartan Potassium 25 Mg Tablet 25 Mg PO DAILY 30 Days Metoprolol Succinate 50 Mg Tab.er.24h 50 Mg PO DAILY 30 Days Clopidogrel (Clopidogrel Bisulfate) 75 Mg Tablet 75 Mg PO DAILY 30 Days Cipro (Ciprofloxacin HCl) 500 Mg Tablet 500 Mg PO BID Reported Metoprolol Succinate 25 Mg Tab.sr.24h 12.5 Mg PO DAILY TAKES 1/2 (25MG) TABLET Clopidogrel (Clopidogrel Bisulfate) 75 Mg Tablet 75 Mg PO DAILY Losartan Potassium 50 Mg Tablet 50 Mg PO DAILY Levothyroxine Sodium 125 Mcg Tablet 125 Mcg PO DAILY Simvastatin 80 Mg Tablet 40 Mg PO HS LAST FILLED #30 4-5-15 TAKES 1/2 (80MG) TABLET Aspirin Ec 81 Mg (Aspirin) 81 Mg Tabec 81 Mg PO DAILY Gemfibrozil 600 Mg Tablet 600 Mg PO BID Assessment/Pt Instructions Patient left AMA Discharge Planning: <30 minutes discharge planning Discharge Physical Examination Vital Signs Vital Signs Date Time Temp Pulse Resp B/P (MAP) Pulse Ox O2 Delivery O2 Flow Rate FiO2 02/22/20 13:00 75 02/22/20 11:00 159/104 93 Room Air 02/22/20 07:48 36.0 02/21/20 22:56 16 HEENT: No Pharyngeal Erythema Allergies: Coded Allergies: Penicillins (Verified Allergy, Severe, 02/21/20) patient states "my throat started feeling funny and the doctor said stop taking it". codeine (Unverified Allergy, Severe, 02/21/20) Pt stated he hasn't had it since he was little but his mom said he "almost twice because of it". atorvastatin calcium (Verified Adverse Reaction, Unknown, muscle aches, 07/03/14) lisinopril (Verified Adverse Reaction, Unknown, 02/21/20) Patient states reaction is coughing. Discharge Summary Date of Admission Feb 21, 2020 at 22:52 Date of Discharge Discharge Date: Feb 22, 2020 Discharge Time: 14:40 Admission Diagnosis Unstable angina Consults/Procedures Consulations Cardiology Procedures Left heart catheterization with coronary artery stenting Discharge Diagnosis Unstable angina (1) Unstable angina Status: Acute (2) CAD (coronary artery disease) Status: Acute Qualifiers: Qualified Codes: I25.110 - Atherosclerotic heart disease of [place] coronary artery with unstable angina pectoris (3) Morbid obesity Status: Chronic (4) Former smoker Status: Chronic (5) HTN (hypertension) Status: Chronic Qualifiers: Qualified Codes: I10 - Essential (primary) hypertension (6) HLD (hyperlipidemia) Status: Chronic (7) T2DM (type 2 diabetes mellitus) Status: Chronic Qualifiers: (8) Non compliance w medication regimen Status: Chronic Clinical Quality Measures AMI/AHF: ASA po Prior to arrival: No DVT/VTE Risk/Contraindication: Risk Factor Score Per Nursin RFS Level Per Nursing on Admit: 3=High RUTH LECHUGA MD Feb 22, 2020 14:15
== END 2020-02-22 14:40 | disposition left against medical advice (07) | DRG 247 ==
LOC: EDUNIT# 20:58 → ER 21:02 → ICU 22:52
PROVIDERS: ADMIT Internal Medicine; ATTEND Internal Medicine
PROC: 027034Z Dilation of Coronary Artery, One Artery with Drug-eluting Intraluminal Device, Percutaneous Approach (ICD-10-PCS; principal; 2020-02-22)
PROC: 4A023N7 Measurement of Cardiac Sampling and Pressure, Left Heart, Percutaneous Approach (ICD-10-PCS; 2020-02-22)
PROC: B2111ZZ Fluoroscopy of Multiple Coronary Arteries using Low Osmolar Contrast (ICD-10-PCS; 2020-02-22)
PROC: B2151ZZ Fluoroscopy of Left Heart using Low Osmolar Contrast (ICD-10-PCS; 2020-02-22)
DX: I25.110 Atherosclerotic heart disease of native coronary artery with unstable angina pectoris (principal); Z68.41 Body mass index [BMI] 40.0-44.9, adult; I24.9 Acute ischemic heart disease, unspecified; I10 Essential (primary) hypertension; E78.5 Hyperlipidemia, unspecified; E66.01 Morbid (severe) obesity due to excess calories; E11.9 Type 2 diabetes mellitus without complications; F32.9 Major depressive disorder, single episode, unspecified; F41.9 Anxiety disorder, unspecified; K21.9 Gastro-esophageal reflux disease without esophagitis; Z87.891 Personal history of nicotine dependence; Z91.14 Patient's other noncompliance with medication regimen
CPT/HCPCS: 36415; 71045; 80048; 80053; 80061; 83036; 83690; 83735; 83874; 83880; 84100; 84484; 85025; 85610; 85730; 87081; 87635; 93041; 93458

== ENCOUNTER → 2020-05-21 | Outpatient (CLI) | payer BC ==
[~2020-05-21] MED LIST changes: +LOSA25TA41 PO; +METO50TA7 PO
== END ==
LOC: CARD 11:00
PROVIDERS: ATTEND Internal Medicine Cardiovascular Disease
DX: I25.10 Atherosclerotic heart disease of native coronary artery without angina pectoris (principal); I51.7 Cardiomegaly
CPT/HCPCS: 93306